=== PATIENT | male | born 1995 | race Caucasian/White ===

== ENCOUNTER 2016-10-04 20:03 | Emergency (ER) | payer OTHER ==
[~2016-10-04] VITALS: Ht 177.8 cm; Wt 75.0 kg
[~2016-10-04 20:03] MED LIST: INSULIN
[2016-10-04 20:06] VITALS: BP 103/37
[2016-10-04] MEDS ORDERED: INSLAN SQ (20:13)
[2016-10-04] MEDS ORDERED: INSU100V SQ (20:13)
[2016-10-04 20:17] LABS: GLUCOSE,POINT OF CARE 109 MG/DL (70-110)
[2016-10-04] MEDS ORDERED: AMOX TR/POT CLAV 875 MG/125 MG TABLET PO ONE (21:15)
== END 2016-10-04 21:13 | disposition home or self-care (01) ==
LOC: EMS 20:04
DX: L03.115 Cellulitis of right lower limb (principal); E11.9 Type 2 diabetes mellitus without complications; F17.210 Nicotine dependence, cigarettes, uncomplicated; Z79.4 Long term (current) use of insulin
CPT/HCPCS: 82962; 99282